=== PATIENT | male | born 1960 | race African-American/Black ===

== ENCOUNTER 2023-11-22 14:05 | Observation (INO) ==
[2023-11-22 09:28] VITALS: BMI 24.8
[~2023-11-22 14:05] MED LIST: KETAMINE HCL ONE; XYLOCAINE 2 % (PLAIN) ONE
[2023-11-22] MEDS: ANCEF VIAL 1 GRAM ONE (15:32)
[2023-11-22] MEDS: NS 1,000 ML IV 1,000 ML ONE (15:32)
[2023-11-22] MEDS: NOZIN NASAL SANITIZER TP ONE (15:32)
[2023-11-22] MEDS: NS 100 ML IV 100 ML ONE (15:32)
[2023-11-22] MEDS: ZEMURON 100 MG VIAL ONE (15:42)
[2023-11-22] MEDS: FENTANYL VIAL INJ 100 mcg ONE (15:42)
[2023-11-22] MEDS: QUELICIN (OR ANECTINE) ONE (15:42)
[2023-11-22] MEDS: PEPCID 20 MG VIAL ONE (15:42)
[2023-11-22] MEDS: ZOFRAN INJ 4 MG VIAL ONE (15:42)
[2023-11-22] MEDS: DIPRIVAN VIAL 20 ML ONE (15:42)
[2023-11-22] MEDS: BRIDION ONE (15:42)
[2023-11-22] MEDS: VERSED ONE (15:42)
[2023-11-22] MEDS: BETADINE SOLN ONE (15:53)
[2023-11-22] MEDS: EPHEDRINE SULFATE INJ ONE (15:56)
[2023-11-22] MEDS: TOBRAMYCIN SULFATE ONE (16:02)
[2023-11-22] MEDS: VANCOMYCIN HCL ONE (16:02)
[2023-11-22] MEDS: MARCAINE 0.25% INJ ONE (16:02)
[2023-11-22] MEDS ORDERED: ZOFRAN INJ 4 MG VIAL IVP PRN (16:29)
[2023-11-22] MEDS ORDERED: BENADRYL INJ 50 MG VIAL IVP PRN (16:29)
[2023-11-22] MEDS ORDERED: BARHEMSYS INJ IVP PRN (16:29)
[2023-11-22] MEDS ORDERED: DILAUDID INJ IVP PRN ×2 (16:29→19:39)
[2023-11-22] MEDS ORDERED: REGLAN INJ 10 MG VIAL IVP PRN (16:29)
[2023-11-22] MEDS: OFIRMEV IV 1000 MG VIAL 1,000 MG/100 ML VIAL IV ONE (18:04)
[2023-11-22] MEDS: NEO-SYNEPHRINE INJ ONE (18:19)
[2023-11-22] MEDS: BREVIBLOC ONE (19:04)
[2023-11-22] MEDS ORDERED: PERCOCET TAB 5/325 MG PO PRN (19:33)
[2023-11-22] MEDS ORDERED: TYLENOL 325 MG TAB PO PRN (19:33)
[2023-11-22] MEDS ORDERED: DESYREL PO PRN (19:35)
[2023-11-22] MEDS: NS 1,000 ML IV 1,000 ML IV SCH (20:20)
[2023-11-22] MEDS: LASIX PO SCH (21:10)
[2023-11-22] MEDS: ZOFRAN INJ 4 MG VIAL IVP PRN (21:10)
[2023-11-22] MEDS: NEURONTIN CAP 100 MG PO SCH (21:10)
[2023-11-22] MEDS: COZAAR PO SCH (21:10)
[2023-11-22] MEDS: LOPRESSOR TAB 50 MG PO SCH (21:11)
[2023-11-22] MEDS: MEGACE PO SCH (21:11)
[2023-11-22] MEDS: COLACE CAP 100 MG PO SCH (21:11)
[2023-11-23 05:31] LABS: CARBON DIOXIDE 24.8 mmol/L (21-32); CREATININE 5.97 mg/dL (0.70-1.30); POTASSIUM 3.6 mmol/L (3.5-5.1)
[2023-11-23] MEDS ORDERED: CONSULT PHARMACY - POTASSIUM & MAGNESIUM XX SCH ×2 (06:00→09:00)
[2023-11-23] MEDS: NovoLIN R (or HumuLIN R) SUBCUT PRN (06:17)
[2023-11-23 08:29] VITALS: BP 140/64; PULSE 84; RESP 20; TEMP 98.3; O2SAT 98
[2023-11-23] MEDS ORDERED: EFFEXOR XR 150 MG CAP 24-HR PO SCH (09:00)
[2023-11-23] MEDS: PROzac PO SCH (09:03)
[2023-11-23] MEDS: EFFEXOR XR 75 MG CAP 24-HR PO SCH (09:03)
[2023-11-23] MEDS: MAG-OX TAB PO SCH (09:04)
[2023-11-23] MEDS: K-DUR TAB 20 MEQ PO SCH (09:04)
[2023-11-23] MEDS: NORVASC TAB 10 MG PO SCH (09:07)
[2023-11-23] MEDS: LOVENOX INJ 30 MG SYR SC SCH (09:07)
--- NOTE | 2023-11-23 09:24 | NOTE.SOAP ---
Soap Note Note for Day of Date of Exam: 11/23/23 Subjective Data Subjective Data: Patient very happy currently. He is ready to go home. Objective Data Objective Data: Right Lower Extremity Exam: Fixator in place. No significant drainage. No calf or thigh pain. Assessment Assessment: POD#1 hardware removal, with cultures, and application of external fixator to the RLE Plan Plan: - We will follow up with the intraoperative cultures. - We would like to obtain a CTA but due to his GFR being low secondary to kidney disease. Imaging will not allow us to obtain it unless he can get dialyze within 24 hours. - We will hold off on a CTA. - Patient can be discharged from Podiatry standpoint as long as okay from Medicine.
[2023-11-23] MEDS: SODIUM ZIRCONIUM CYCLOSILICATE PO SCH (10:15)
[2023-11-23] MEDS: PATIENT'S HOME MEDICATION (Empagliflozin 25 mg Tablet) PO SCH (10:15)
[2023-11-23] MEDS ORDERED: SNACK - Diabetic Appropriate PO SCH (20:00)
--- NOTE | 2023-11-26 18:28 | W.DIS.FURT ---
Summary of Discharge Discharge Summary of Date Date of Exam: 11/23/23 Admission Date Date of Admission: 11/22/23 Admission Diagnosis Hospital Course: Patient is a 63 year old male POD#1 for hardware removal, with cultures, and application of external fixator to the RLE Pt is doing well this morning. He will be followed outpatient by podiatry post- surgery and intraoperative cultures. He was discharged in stable condition. Instructed to follow up with podiatry and pcp in 1 week. Vital Signs: Vital Signs (72 hours) 11/22/23 09:08 11/22/23 08:05 11/22/23 19:10 Temperature 97.1 F L Pulse Rate 74 76 Pulse Rate [Brachial] Respiratory Rate 16 Blood Pressure 139/66 Blood Pressure [Left Arm] O2 Sat by Pulse Oximetry 100 Oxygen Delivery Method Room Air Aerosol Face Tent 11/22/23 19:15 11/22/23 19:25 11/22/23 19:30 Temperature Pulse Rate 75 97 H 97 H Pulse Rate [Brachial] Respiratory Rate 16 16 18 Blood Pressure 135/61 129/60 119/57 Blood Pressure [Left Arm] O2 Sat by Pulse Oximetry 100 100 97 Oxygen Delivery Method Aerosol Face Tent Room Air Room Air 11/22/23 19:35 11/22/23 19:40 11/22/23 19:20 Temperature Pulse Rate 74 74 97 H Pulse Rate [Brachial] Respiratory Rate 18 18 16 Blood Pressure 116/56 121/58 129/59 Blood Pressure [Left Arm] O2 Sat by Pulse Oximetry 96 97 100 Oxygen Delivery Method Room Air Room Air Aerosol Face Tent 11/22/23 20:00 11/23/23 00:00 11/22/23 20:00 Temperature 97.8 F 97.5 F L Pulse Rate Pulse Rate [Brachial] 75 75 Respiratory Rate 18 18 Blood Pressure Blood Pressure [Left Arm] 138/65 120/57 O2 Sat by Pulse Oximetry 100 96 Oxygen Delivery Method Room Air Room Air 11/22/23 20:15 11/22/23 20:30 11/22/23 20:45 Temperature 97.5 F L Pulse Rate Pulse Rate [Brachial] 75 74 74 Respiratory Rate 18 16 16 Blood Pressure Blood Pressure [Left Arm] 130/58 128/60 140/66 O2 Sat by Pulse Oximetry 96 98 98 Oxygen Delivery Method 11/22/23 21:00 11/22/23 22:00 11/22/23 23:00 Temperature 97.9 F 98.1 F Pulse Rate Pulse Rate [Brachial] 76 75 75 Respiratory Rate 17 16 18 Blood Pressure Blood Pressure [Left Arm] 150/70 142/68 138/65 O2 Sat by Pulse Oximetry 98 100 100 Oxygen Delivery Method 11/23/23 00:00 11/23/23 01:00 11/23/23 04:00 Temperature 98.2 F 98.1 F 98.7 F Pulse Rate Pulse Rate [Brachial] 77 79 85 Respiratory Rate 16 20 18 Blood Pressure Blood Pressure [Left Arm] 134/63 117/60 112/57 O2 Sat by Pulse Oximetry 100 100 100 Oxygen Delivery Method Room Air 11/23/23 07:00 11/23/23 08:00 Temperature 98.3 F Pulse Rate Pulse Rate [Brachial] 84 Respiratory Rate 20 Blood Pressure Blood Pressure [Left Arm] 140/64 O2 Sat by Pulse Oximetry 98 Oxygen Delivery Method Room Air Room Air Labs: Laboratory Last Values Sodium 135 mmol/L (136-145) L 11/23/23 04:40 Corrected Sodium 142 mmol/L (136-145) 11/23/23 04:40 Potassium 3.6 mmol/L (3.5-5.1) 11/23/23 04:40 Chloride 97 mmol/L (98-107) L 11/23/23 04:40 Carbon Dioxide 24.8 mmol/L (21-32) 11/23/23 04:40 BUN 36 mg/dL (7-18) H 11/23/23 04:40 Creatinine 5.97 mg/dL (0.70-1.30) H 11/23/23 04:40 Est GFR (MDRD) Af Amer 12 (>60) L 11/23/23 04:40 Est GFR (MDRD) Non-Af 10 (>60) L 11/23/23 04:40 Glucose 383 mg/dL (65-99) H 11/23/23 04:40 POC Glucose (mg/dL) 286 mg/dL (65-99) H 11/23/23 10:57 Calcium 8.0 mg/dL (8.5-10.1) L 11/23/23 04:40 Magnesium 1.6 mg/dL (2.0-2.9) L 11/23/23 04:40 Reason For Visit: HARDWARE REMOVAL Discharge Date Discharge Date: 11/23/23 Discharge Diagnosis Plan of Treatment: Continue with present treatment and follow up plan. Pt is to keep follow up appointment as instructed and take medications as ordered. Discharge Medications Discharge Medications: latex Allergy (Verified 11/14/21 08:18) CONTINUE taking the following medications amlodipine 10 mg tablet 10 mg PO QDAY 11/22/23 [History] empagliflozin 25 mg tablet 12.5 mg PO QAM 11/22/23 [History] fluoxetine 20 mg capsule 20 mg PO QDAY 11/22/23 [History] furosemide 80 mg tablet 40 mg PO BID 11/22/23 [History] gabapentin 100 mg tablet 100 mg PO TID 11/22/23 [History] glipizide 10 mg tablet 10 mg PO BID 11/22/23 [History] losartan 50 mg tablet 25 mg PO BID 11/22/23 [History] megestrol 40 mg tablet 40 mg PO BID 11/22/23 [History] metoprolol tartrate 50 mg tablet 25 mg PO BID 11/22/23 [History] sodium zirconium cyclosilicate 10 gram oral powder packet (Lokelma) 10 g PO QDAY 11/22/23 [History] trazodone 50 mg tablet 50 mg PO QHS PRN 11/22/23 [History] venlafaxine 150 mg capsule,extended release 24 hr 150 mg PO QAM 11/22/23 [History] Discharge Plan Discharge Plan Hospital Course: Patient is a 63 year old male POD#1 for hardware removal, with cultures, and application of external fixator to the RLE Pt is doing well this morning. He will be followed outpatient by podiatry post- surgery and intraoperative cultures. He was discharged in stable condition. Instructed to follow up with podiatry and pcp in 1 week. Patient Disposition: 01 HOME, SELF-CARE Condition: Stable Health Concerns: Post Hospitalization: new medications and changes needed to prevent readmission or further decline. Pt educated and given instructions on all concerns. Plan of Treatment: Continue with present treatment and follow up plan. Pt is to keep follow up appointment as instructed and take medications as ordered. Prescriptions: New hydrocodone-acetaminophen 5-325 mg Tablet 1 tab PO Q4H MDD 4 PRNQty: 36 0RF ondansetron 8 mg Tablet,Disintegrating 8 mg PO Q8H PRNQty: 21 0RF Continued losartan 50 mg Tablet 25 mg PO BID trazodone 50 mg Tablet 50 mg PO QHS PRN glipizide 10 mg Tablet 10 mg PO BID venlafaxine 150 mg Capsule,Extended Release 24hr 150 mg PO QAM furosemide 80 mg Tablet 40 mg PO BID amlodipine 10 mg Tablet 10 mg PO QDAY metoprolol tartrate 50 mg Tablet 25 mg PO BID megestrol 40 mg Tablet 40 mg PO BID fluoxetine 20 mg Capsule 20 mg PO QDAY gabapentin 100 mg Tablet 100 mg PO TID empagliflozin 25 mg Tablet 12.5 mg PO QAM Lokelma 10 gram Powder In Packet 10 g PO QDAY Orders to Discharge Patient Discharge Orders: Discharge (Routine); Ordered 11/23/23 Ordered By: Rakan Winkler Follow ups/Referrals Follow ups/Referrals: FREDDIE LY [Primary Care Provider] - PCP Jose Biggs [CONSULTING PHYSICIAN] - 11/28/23 8:30 am Instructions Instructions: Orthopedic Hardware Removal, Care After Stand Alone Forms: Post Hospital Follow Up Care
== END 2023-11-23 11:40 | disposition home or self-care (01) ==
LOC: MED/SURG
PROVIDERS: ADMIT Obstetrics & Gynecology Obstetrics; ATTEND Obstetrics & Gynecology Obstetrics
PROC: APEXFIX (2023-11-22 14:45)
PROC: HARDREM (ICD-10-PCS; 2023-11-22 14:45)

== ENCOUNTER 2024-01-08 12:45 | Observation (INO) ==
[2024-01-08] MEDS ORDERED: ULTANE GAS IN ONE (12:49)
[2024-01-08] MEDS: NOZIN NASAL SANITIZER TP ONE (13:02)
[2024-01-08 13:39] VITALS: BMI 24.8
[2024-01-08 14:07] LABS: CALCIUM 8.7 mg/dL (8.5-10.1); CREATININE 4.56 mg/dL (0.70-1.30); POTASSIUM 3.7 mmol/L (3.5-5.1)
[2024-01-08] MEDS: NS 100 ML IV 100 ML ONE (14:09)
[2024-01-08] MEDS: NS 1,000 ML IV 1,000 ML ONE (14:09)
[2024-01-08] MEDS: DIPRIVAN VIAL 20 ML ONE (14:09)
[2024-01-08] MEDS: ANCEF VIAL 1 GRAM ONE (14:09)
[2024-01-08] MEDS: VERSED ONE (14:10)
[2024-01-08] MEDS: PEPCID 20 MG VIAL ONE (14:10)
[2024-01-08] MEDS: DECADRON INJ ONE (14:10)
[2024-01-08] MEDS: XYLOCAINE 2 % (PLAIN) ONE (14:10)
[2024-01-08] MEDS: OFIRMEV IV 1000 MG VIAL 1,000 MG/100 ML VIAL IV ONE (14:10)
[2024-01-08] MEDS: PRECEDEX INJ VIAL ONE (14:10)
[2024-01-08] MEDS: FENTANYL VIAL INJ 100 mcg ONE (14:10)
[2024-01-08] MEDS: REGLAN INJ 10 MG VIAL ONE (14:10)
[2024-01-08] MEDS: ZOFRAN INJ 4 MG VIAL ONE (14:10)
[2024-01-08] MEDS: KETAMINE HCL ONE (14:10)
[2024-01-08] MEDS: BETADINE SOLN ONE (14:10)
[2024-01-08] MEDS: VANCOMYCIN HCL ONE (14:15)
[2024-01-08] MEDS: TOBRAMYCIN SULFATE ONE (14:16)
[2024-01-08] MEDS: EPHEDRINE SULFATE INJ ONE (14:26)
[2024-01-08] MEDS: NEO-SYNEPHRINE INJ ONE (14:30)
[2024-01-08] MEDS ORDERED: NS IRRIGATION* 500 ML IR ONE (15:28)
[2024-01-08] MEDS ORDERED: BARHEMSYS INJ IVP PRN (15:37)
[2024-01-08] MEDS ORDERED: ZOFRAN INJ 4 MG VIAL IVP PRN ×2 (15:37→17:16)
[2024-01-08] MEDS ORDERED: DILAUDID INJ IVP PRN (15:37)
[2024-01-08] MEDS ORDERED: BENADRYL INJ 50 MG VIAL IVP PRN (15:37)
[2024-01-08] MEDS: DILAUDID INJ ONE (16:38)
[2024-01-08] MEDS: HYDROGEN PEROXIDE 3% ONE (16:57)
[2024-01-08] MEDS ORDERED: TYLENOL 325 MG TAB PO PRN (17:16)
[2024-01-08] MEDS: NS 1,000 ML IV 1,000 ML IV SCH (18:12)
[2024-01-08] MEDS: COLACE CAP 100 MG PO SCH (20:26)
[2024-01-08] MEDS: NORCO 5/325 MG TAB PO PRN (20:28)
[2024-01-09 04:09] VITALS: PULSE 95
[2024-01-09 06:22] LABS: CALCIUM 7.8 mg/dL (8.5-10.1); CARBON DIOXIDE 22.9 mmol/L (21-32); CREATININE 6.21 mg/dL (0.70-1.30); POTASSIUM 4.2 mmol/L (3.5-5.1)
--- NOTE | 2024-01-09 09:01 | NOTE.SOAP ---
Soap Note Note for Day of Date of Exam: 01/09/24 Subjective Data Subjective Data: Resting in bed. No pain in the operative limb. Denies N/V/F/C/SOB. Objective Data Objective Data: Right Lower Extremity exam: Moderate strikethrough was noted. Dressing was taken down and the surgical sites were examined. No gapping or dehisence or gross drainage from surgical sites. No hematoma formation noted under the incisions. Sterile dressing was reapplied. No signs or symptoms concerning for DVT, PE, or Compartment Syndrome. Assessment Assessment: 63 year old M with diabetes and ESRD on dialysis POD#1 tibiotalocalcaneal revision fusion, right lower extremity Plan Plan: - NWB to the RLE. - Should keep dressing clean and dry. If gets wet, he is instructed to call the office. - His prescriptions were placed in the chart as well as his follow up. - He should also be discharged on Doxycycline 100mg BID for 10 days, I have instructed the nursing staff of this and they placed the order. - Patient is okay for discharge from Podiatry standpoint.
[2024-01-09 09:14] VITALS: BP 141/67; TEMP 98.4; O2SAT 99
[2024-01-09 10:29] VITALS: RESP 18
== END 2024-01-09 13:20 | disposition home or self-care (01) ==
LOC: MED/SURG
PROVIDERS: ADMIT Obstetrics & Gynecology Obstetrics; ATTEND Obstetrics & Gynecology Obstetrics